=== PATIENT | female | born 1930 | race Caucasian/White ===

== ENCOUNTER 2018-07-13 16:48 | Emergency (ER) | payer MEDICARE, BC ==
[~2018-07-13 16:48] MED LIST: ASPIRIN 32325 MG/TAB PO; CELEBREX 200MG200 MG PO; DIOVAN 80MG80 MG PO; GLUCOPHAGE1000 MG PO; GLUCOTROL 5M5 MG/TAB PO; JANUVIA 100MG100 MG PO; LANTUS100 U/ML SC; NORCO 325 MG-7.1 TAB PO; RESTASIS0.05% OP; TOPROL XL100 MG PO; TYLENOL 325MG325 MG PO
[2018-07-13 18:47] VITALS: BP 190/110; PULSE 86
== END 2018-07-13 18:55 | disposition home or self-care (01) ==
LOC: COL.ER 16:48
DX: L76.22 Postprocedural hemorrhage of skin and subcutaneous tissue following other procedure (principal)